=== PATIENT | male | born 1990 | race Caucasian/White ===

== ENCOUNTER → 2016-08-08 | Outpatient (CLI) | payer BC, OTHER | END | disposition home or self-care (01) | LOC: RADECHMAIN 13:29 | PROVIDERS: ATTEND Family Medicine | DX: R00.1 Bradycardia, unspecified (principal); R00.0 Tachycardia, unspecified | CPT/HCPCS: 93225; 93226 ==

== ENCOUNTER 2017-03-09 23:52 | Emergency (ER) | payer BC ==
[2017-03-10 00:02] VITALS: RESP 18
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
[2017-03-10 00:42] LABS: Basophils # (A) 0.1 k/uL (0-0.2); Basophils % (A) 2 %; CH 33.1; CHCM 36.2; Eosinophils # (A) 0.2 k/uL (0-0.7); Eosinophils % (A) 4 %; HCT 44.3 % (39.0-53.0); HDW 2.73; HGB 15.5 gm/dL (13.0-17.5); Luc # (Auto) 0.15; Luc % (Auto) 3; Lymphocytes # (A) 1.9 k/uL (1.0-4.8); Lymphocytes % (A) 37 %; MCH 32.1 pg (25.0-35.0); MCHC 34.9 g/dL (31.0-37.0); MCV 91.9 fL (80.0-100.0); Mean Platelet Volume 8.3; Monocytes # (A) 0.5 k/uL (0-1.0); Monocytes % (A) 9 %; Neutrophils # (A) 2.3 k/uL (1.3-7.7); Neutrophils % (A) 46 %; RBC 4.82 m/uL (4.30-5.90); RDW 14.8 % (11.5-15.5); WBC 5.1 k/uL (3.8-10.6); WBC (Perox) 4.89
[2017-03-10 00:54] LABS: ALT 38 U/L (21-72); AST 31 U/L (17-59); Alkaline Phosphatase 68 U/L (38-126); Amylase <30 U/L (30-110); Anion Gap 11 mmol/L; Blood Urea Nitrogen 18 mg/dL (9-20); Calcium 9.4 mg/dL (8.4-10.2); Carbon Dioxide 27 mmol/L (22-30); Chloride 101 mmol/L (98-107); Glucose 106 mg/dL (74-99); Non-African American GFR(MDRD) >60 (>60 ml/min/1.73 sqM); Potassium 3.8 mmol/L (3.5-5.1); Sodium 139 mmol/L (137-145); Total Bilirubin 0.6 mg/dL (0.2-1.3); Total Protein 6.9 g/dL (6.3-8.2)
--- NOTE | 2017-03-10 00:57 | XR ---
EXAM: XR KUB, 1 View CLINICAL HISTORY: Reason: abdominal pain TECHNIQUE: Frontal supine view of the abdomen/pelvis. COMPARISON: No relevant prior studies available. FINDINGS: Gastrointestinal tract: Unremarkable. No dilation. Bones/joints: Fixation screws noted in the left hip without evidence of fracture or loosening. IMPRESSION: No acute findings.
--- NOTE | 2017-03-10 00:58 | XR ---
EXAM: XR Chest, 1 View CLINICAL HISTORY: Reason: Pain TECHNIQUE: Frontal view of the chest. COMPARISON: 02/05/16 FINDINGS: Lungs: Unremarkable. No consolidation. Pleural space: Unremarkable. No pneumothorax. Heart: Unremarkable. No cardiomegaly. Mediastinum: Unremarkable. Bones/joints: Unremarkable. IMPRESSION: Normal chest x-ray.
[2017-03-10 01:21] LABS: Amorphous Sediment,Urine Moderate /hpf; Appearance,Urine Turbid (Clear); Bilirubin,Urine Negative (Negative); Glucose,Urine (UA) Negative (Negative); Ketones,Urine Negative (Negative); Leukocyte Esterase,Urine Trace (Negative); Nitrite,Urine Negative (Negative); PH, Urine 7.5 (5.0-8.0); Particle Count 8196; Protein,Urine Negative (Negative); Specific Gravity,Urine 1.012 (1.001-1.035); UA Billing (MACRO vs. MICRO) MICRO; Urobilinogen,Urine <2.0 mg/dL (<2.0)
[2017-03-10 02:05] VITALS: BP 121/59; PULSE 73; TEMP 97.8
== END 2017-03-10 02:06 | disposition home or self-care (01) ==
LOC: EC 23:52
DX: R11.2 Nausea with vomiting, unspecified (principal); R10.13 Epigastric pain; F17.200 Nicotine dependence, unspecified, uncomplicated; Z91.040 Latex allergy status
CPT/HCPCS: 36415; 71010; 74000; 80053; 81001; 82150; 83690; 85025; 99284

== ENCOUNTER 2017-12-04 01:38 | Emergency (ER) | payer SELFPAY ==
[2017-12-04 01:50] VITALS: RESP 18
[2017-12-04] MEDS ORDERED: LORATADINE 10 MG TAB PO STA (02:27)
[2017-12-04] MEDS ORDERED: ALBUTEROL NEBULIZED 2.5 MG/3 ML INHALATION STA (02:27)
[2017-12-04] MEDS ORDERED: BENZONATATE 100 MG CAP PO STA (02:27)
[2017-12-04] MEDS ORDERED: cefTRIAXone 250 MG VIAL IM STA (02:27)
[2017-12-04] MEDS ORDERED: AZITHROMYCIN 500 MG TAB PO STA (02:27)
[2017-12-04 02:29] LABS: Appearance,Urine Clear (Clear); Bilirubin,Urine Negative (Negative); Blood,Urine Negative (Negative); Color,Urine Yellow; Glucose,Urine (UA) Negative (Negative); Ketones,Urine Negative (Negative); Leukocyte Esterase,Urine Negative (Negative); Nitrite,Urine Negative (Negative); Protein,Urine Negative (Negative); Specific Gravity,Urine 1.021 (1.001-1.035); Urobilinogen,Urine <2.0 mg/dL (<2.0)
--- NOTE | 2017-12-04 02:41 | XR ---
EXAMINATION TYPE: XR chest 2V DATE OF EXAM: 12/04/2017 COMPARISON: 02/05/2016 HISTORY: Chest pain TECHNIQUE: Frontal and lateral views of the chest are obtained. FINDINGS: Heart and mediastinum are normal. Lungs are clear. Diaphragm is normal. Bony thorax is int act. IMPRESSION: Normal chest. No change.
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
[2017-12-04 03:47] VITALS: BP 130/74; PULSE 69; TEMP 98.3
[2017-12-05 14:03] LABS: C. trachomatis,PCR Negative (Neg,Equiv); Chlamydia trachomatis Source Urine; N. gonorrhoeae,PCR Positive (Neg,Equiv); Neisseria Source Urine
== END 2017-12-04 03:46 | disposition home or self-care (01) ==
LOC: EC 01:38
DX: J45.909 Unspecified asthma, uncomplicated (principal); A74.9 Chlamydial infection, unspecified; F17.200 Nicotine dependence, unspecified, uncomplicated; Z91.040 Latex allergy status
CPT/HCPCS: 71046; 81003; 87491; 87591; 94640; 96372; 99283

== ENCOUNTER 2018-01-15 21:12 | Emergency (ER) | payer OTHER ==
[2018-01-15 21:33] VITALS: BP 135/75; PULSE 109; RESP 18; TEMP 98.3
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
[2018-01-16 05:26] LABS: Basophils % (A) 1 %; Eosinophils # (A) 0.1 k/uL (0-0.7); Eosinophils % (A) 2 %; HCT 50.8 % (39.0-53.0); HGB 17.2 gm/dL (13.0-17.5); Lymphocytes % (A) 25 %; MCH 31.4 pg (25.0-35.0); MCHC 33.8 g/dL (31.0-37.0); Mean Platelet Volume 7.5; Monocytes # (A) 0.5 k/uL (0-1.0); Monocytes % (A) 6 %; Neutrophils # (A) 5.2 k/uL (1.3-7.7); Neutrophils % (A) 64 %; Platelet Count 274 k/uL (150-450); RBC 5.46 m/uL (4.30-5.90); RDW 14.4 % (11.5-15.5); WBC 8.1 k/uL (3.8-10.6)
[2018-01-16 05:27] LABS: Amorphous Sediment,Urine Rare /hpf; Appearance,Urine Clear (Clear); Bilirubin,Urine Negative (Negative); Blood,Urine Negative (Negative); Color,Urine Yellow; Glucose,Urine (UA) Negative (Negative); Ketones,Urine Negative (Negative); Leukocyte Esterase,Urine Negative (Negative); Mucus,Urine Rare /hpf; Nitrite,Urine Negative (Negative); PH, Urine 6.5 (5.0-8.0); Protein,Urine Negative (Negative); Specific Gravity,Urine 1.019 (1.001-1.035); Squamous Epithelial Cell,Urine <1 /hpf (0-4); WBC,Urine <1 /hpf (0-5)
[2018-01-16 06:03] LABS: ALT 35 U/L (21-72); AST 26 U/L (17-59); Albumin 4.5 g/dL (3.5-5.0); Alkaline Phosphatase 76 U/L (38-126); Anion Gap 10 mmol/L; Blood Urea Nitrogen 17 mg/dL (9-20); Carbon Dioxide 25 mmol/L (22-30); Chloride 107 mmol/L (98-107); Glucose 88 mg/dL (74-99); Magnesium 2.2 mg/dL (1.6-2.3); Potassium 4.6 mmol/L (3.5-5.1); Sodium 142 mmol/L (137-145); Total Bilirubin 0.5 mg/dL (0.2-1.3); Total Protein 7.3 g/dL (6.3-8.2)
--- NOTE | 2018-01-16 11:12 | XR ---
EXAMINATION TYPE: XR chest 2V DATE OF EXAM: 01/16/2018 COMPARISON: NONE HISTORY: Chest pain TECHNIQUE: Frontal and lateral views of the chest are obtained. FINDINGS: There is no focal air space opacity. No evidence for pneumothorax. No pleural effusion. The cardiac silhouette size is within normal limits. The osseous structures are grossly intact. IMPRESSION: 1. No acute cardiopulmonary process.
[2018-01-16 12:18] LABS: HIV AB P24 Non-Reactive (Non-Reactive); HIV P24 AG Non-Reactive (Non-Reactive)
== END 2018-01-16 01:01 | disposition home or self-care (01) ==
LOC: EC 21:12
DX: B34.9 Viral infection, unspecified (principal); F17.200 Nicotine dependence, unspecified, uncomplicated; Z91.040 Latex allergy status
CPT/HCPCS: 36415; 71046; 80053; 81003; 83735; 85025; 86308; 87390; 87491; 87591; 99285

== ENCOUNTER 2018-06-17 01:32 | Emergency (ER) | payer OTHER ==
[2018-06-17 01:40] VITALS: BP 110/73; TEMP 97.8
[2018-06-17 02:06] LABS: Appearance,Urine Clear (Clear); Bilirubin,Urine Negative (Negative); Blood,Urine Negative (Negative); Color,Urine Light Yellow; Glucose,Urine (UA) Negative (Negative); Ketones,Urine Negative (Negative); Leukocyte Esterase,Urine Negative (Negative); Nitrite,Urine Negative (Negative); Protein,Urine Negative (Negative); Specific Gravity,Urine 1.007 (1.001-1.035); Urobilinogen,Urine <2.0 mg/dL (<2.0)
[2018-06-17] MEDS ORDERED: AZITHROMYCIN 500 MG TAB PO STA (02:16)
[2018-06-17] MEDS ORDERED: cefTRIAXone 250 MG VIAL IM STA (02:16)
[2018-06-17] MEDS ORDERED: metroNIDAZOLE 500 MG TAB PO STA (02:16)
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
[2018-06-17 03:28] VITALS: PULSE 64; RESP 16
[2018-06-18 13:56] LABS: N. gonorrhoeae,PCR Negative (Neg,Equiv); Neisseria Source Urine
[2018-06-18 15:35] LABS: C. trachomatis,PCR Negative (Neg,Equiv); Chlamydia trachomatis Source Urine
== END 2018-06-17 03:26 | disposition home or self-care (01) ==
LOC: EC 01:32
DX: Z71.1 Person with feared health complaint in whom no diagnosis is made (principal); F17.200 Nicotine dependence, unspecified, uncomplicated; Z91.040 Latex allergy status
CPT/HCPCS: 81003; 87491; 87591; 99284; 96372; J0696

== ENCOUNTER 2018-06-29 00:35 | Emergency (ER) | payer OTHER ==
[2018-06-29 00:43] VITALS: BP 137/65; PULSE 101; RESP 18; TEMP 97.8
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
[2018-06-29 01:21] LABS: Basophils % (A) 0 %; Eosinophils % (A) 1 %; HCT 46.9 % (39.0-53.0); HGB 16.1 gm/dL (13.0-17.5); Lymphocytes # (A) 2.4 k/uL (1.0-4.8); Lymphocytes % (A) 36 %; MCH 31.9 pg (25.0-35.0); MCHC 34.3 g/dL (31.0-37.0); Mean Platelet Volume 7.5; Monocytes # (A) 0.3 k/uL (0-1.0); Monocytes % (A) 5 %; Neutrophils # (A) 3.8 k/uL (1.3-7.7); Neutrophils % (A) 56 %; Platelet Count 244 k/uL (150-450); RBC 5.04 m/uL (4.30-5.90); RDW 13.8 % (11.5-15.5); WBC 6.8 k/uL (3.8-10.6)
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
[2018-06-29 01:46] LABS: ALT 32 U/L (21-72); AST 36 U/L (17-59); Albumin 4.5 g/dL (3.5-5.0); Alkaline Phosphatase 56 U/L (38-126); Anion Gap 11 mmol/L; Blood Urea Nitrogen 13 mg/dL (9-20); Calcium 9.5 mg/dL (8.4-10.2); Carbon Dioxide 24 mmol/L (22-30); Chloride 108 mmol/L (98-107); Glucose 105 mg/dL (74-99); Potassium 4.2 mmol/L (3.5-5.1); Sodium 143 mmol/L (137-145); Total Bilirubin 0.5 mg/dL (0.2-1.3); Total Protein 7.3 g/dL (6.3-8.2)
--- NOTE | 2018-06-29 02:18 | XR ---
EXAMINATION TYPE: XR chest 1V portable DATE OF EXAM: 06/29/2018 COMPARISON: 01/15/2018 HISTORY: Chest pain and trauma TECHNIQUE: Single frontal view of the chest is obtained. FINDINGS: Heart and mediastinum are normal. Lungs are clear. Diaphragm is normal. There is no sign o f pleural effusion or pneumothorax. Ribs appear intact. IMPRESSION: Normal chest
--- NOTE | 2018-06-29 02:20 | XR ---
EXAMINATION TYPE: XR wrist limited LT DATE OF EXAM: 06/29/2018 COMPARISON: NONE HISTORY: Wrist pain TECHNIQUE: 4 views FINDINGS: There is a nondisplaced 5 mm chip fracture of the lateral aspect of the distal scaphoid bon e. There is no dislocation. The other carpal bones appear intact. Metacarpals are intact. IMPRESSION: Small nondisplaced chip fracture of the scaphoid bone.
--- NOTE | 2018-06-29 02:21 | XR ---
EXAMINATION TYPE: XR Hip LT and AP Pelvis DATE OF EXAM: 06/29/2018 COMPARISON: NONE HISTORY: TECHNIQUE: A single AP view of the pelvis is obtained. Two views of the left hip are obtained. FINDINGS: The pelvic ring is intact. There are 3 screws in the left femoral head and 2 screws in the intertrochanteric femur. Joint spaces are fairly normal. Sacroiliac joints are intact. I see no fract ure. IMPRESSION: No acute abnormality of the pelvis and left hip.
[2018-06-29 02:45] LABS: Alcohol 110 mg/dL
== END 2018-06-29 03:25 | disposition home or self-care (01) ==
LOC: EC 00:35
DX: S62.015A Nondisplaced fracture of distal pole of navicular [scaphoid] bone of left wrist, initial encounter for closed fracture (principal); M25.552 Pain in left hip; M54.2 Cervicalgia; F17.200 Nicotine dependence, unspecified, uncomplicated; Z91.040 Latex allergy status; Z98.890 Other specified postprocedural states; W17.89XA Other fall from one level to another, initial encounter; Y93.89 Activity, other specified
CPT/HCPCS: 29125; 36415; 70450; 71045; 72125; 73502; 80053; 80320; 85025; 93005; 99284

== ENCOUNTER 2018-07-13 14:38 | Emergency (ER) | payer OTHER ==
[2018-07-13 15:00] VITALS: RESP 18; TEMP 98.9
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
[2018-07-13 15:57] LABS: Appearance,Urine Clear (Clear); Bilirubin,Urine Negative (Negative); Blood,Urine Negative (Negative); Color,Urine Yellow; Glucose,Urine (UA) Negative (Negative); Ketones,Urine Negative (Negative); Leukocyte Esterase,Urine Negative (Negative); Nitrite,Urine Negative (Negative); PH, Urine 5.5 (5.0-8.0); Protein,Urine Negative (Negative); Specific Gravity,Urine 1.016 (1.001-1.035); Urobilinogen,Urine <2.0 mg/dL (<2.0)
--- NOTE | 2018-07-13 16:04 | US ---
EXAMINATION TYPE: US scrotum with doppler. Grayscale and color Doppler Duplex imaging performed of stephanie pablo scrotum. DATE OF EXAM: 07/13/2018 COMPARISON: NONE CLINICAL HISTORY: Pain. right testicle pain EXAM MEASUREMENTS: TESTICLES: Right Testicle: 4.6 x 2.1 x 2.9 cm Left Testicle: 4.9 x 2.0 x 2.8 cm EPIDIDYMIS HEAD: Right Epididymis: 0.7 x 0.9 cm Left Epididymis: 0.7 x 0.9 cm Doppler performed to assess for testicular vascularity; good bilateral color flow and waveforms are s een. There is no evidence of testicular torsion. Presence of hydroceles: small amount of fluid around left testicle. Presence of varicoceles: not appreciated Echogenic focus posterior to left testicle, incidentally noted scrotal serina. IMPRESSION: 1. Trace left hydrocele. 2. No sonographic evidence of intratesticular mass. No increased blood flow to the right testicle. No enlarged size or edema of the right testicle comparison to the left. No evidence of testicular torsi on on the examination.
[2018-07-13] MEDS ORDERED: metroNIDAZOLE 500 MG TAB PO STA ×2 (17:11→17:32)
[2018-07-13] MEDS ORDERED: KETOROLAC 30 MG/ML 1 ML VIAL IM STA (17:12)
[2018-07-13 17:55] VITALS: BP 127/79; PULSE 60
[2018-07-14 14:29] LABS: C. trachomatis,PCR Negative (Neg,Equiv); Chlamydia trachomatis Source Urine; N. gonorrhoeae,PCR Negative (Neg,Equiv); Neisseria Source Urine
== END 2018-07-13 17:53 | disposition home or self-care (01) ==
LOC: EC 14:38
DX: N50.811 Right testicular pain (principal); N43.3 Hydrocele, unspecified; F17.200 Nicotine dependence, unspecified, uncomplicated; Z91.040 Latex allergy status
CPT/HCPCS: 81003; 87491; 87591; 87661; 93975; 76870; 99284; 96372; J1885

== ENCOUNTER 2019-03-26 19:18 | Emergency (ER) | payer OTHER ==
[2019-03-26] MEDS ORDERED: AZITHROMYCIN 500 MG TAB PO STA (19:35)
[2019-03-26] MEDS ORDERED: cefTRIAXone 250 MG VIAL IM STA (19:35)
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
[2019-03-26 20:01] LABS: Appearance,Urine Clear (Clear); Bacteria,Urine Rare /hpf; Bilirubin,Urine Negative (Negative); Blood,Urine Negative (Negative); Color,Urine Yellow; Glucose,Urine (UA) Negative (Negative); Ketones,Urine Trace (Negative); Leukocyte Esterase,Urine Moderate (Negative); Mucus,Urine Few /hpf; Nitrite,Urine Negative (Negative); Protein,Urine Trace (Negative); RBC,Urine 1 /hpf (0-5); Specific Gravity,Urine 1.029 (1.001-1.035); WBC,Urine 49 /hpf (0-5)
--- NOTE | 2019-03-26 20:17 | XR ---
EXAMINATION TYPE: XR chest 2V DATE OF EXAM: 03/26/2019 COMPARISON: 06/29/2018 HISTORY: Cough TECHNIQUE: Frontal and lateral views of the chest are obtained. FINDINGS: Heart and mediastinum are normal. Lungs are clear. Diaphragm is normal. Bony thorax appear s normal. IMPRESSION: Normal chest. No change.
[2019-03-26] MEDS ORDERED: CEPHALEXIN 500MG STARTER PACK 4 CAP BTL PO STA (21:08)
[2019-03-26] MEDS ORDERED: ACETAMINOPHEN TAB 325 MG TAB PO STA (21:08)
[2019-03-26 21:19] VITALS: BP 128/83; PULSE 95; RESP 16; TEMP 98.4
[2019-03-27 16:24] LABS: C. trachomatis,PCR Negative (Neg,Equiv); Chlamydia trachomatis Source Urine
[2019-03-27 16:25] LABS: N. gonorrhoeae,PCR Positive (Neg,Equiv); Neisseria Source Urine
== END 2019-03-26 21:18 | disposition home or self-care (01) ==
LOC: EC 19:18
DX: J06.9 Acute upper respiratory infection, unspecified (principal); F17.200 Nicotine dependence, unspecified, uncomplicated; Z91.040 Latex allergy status; Z91.048 Other nonmedicinal substance allergy status
CPT/HCPCS: 81001; 87491; 87591; 87502; 71046; 99284; 96372; J0696

== ENCOUNTER → 2019-10-11 | Outpatient (CLI) | payer OTHER ==
--- NOTE | 2019-10-11 12:05 | XR ---
EXAMINATION TYPE: XR chest 2V DATE OF EXAM: 10/11/2019 COMPARISON: 03/26/2019 HISTORY: Chest pain TECHNIQUE: Frontal and lateral views of the chest are obtained. FINDINGS: There is no focal air space opacity. No evidence for pneumothorax. No pleural effusion. The cardiac silhouette size is within normal limits. The osseous structures are grossly intact. IMPRESSION: 1. No acute cardiopulmonary process.
[2019-10-11 12:30] LABS: Appearance,Urine Clear (Clear); Bilirubin,Urine Negative (Negative); Blood,Urine Negative (Negative); Color,Urine Light Yellow; Glucose,Urine (UA) Negative (Negative); Ketones,Urine Negative (Negative); Leukocyte Esterase,Urine Negative (Negative); Nitrite,Urine Negative (Negative); Protein,Urine Negative (Negative); Specific Gravity,Urine 1.013 (1.001-1.035); Urobilinogen,Urine <2.0 mg/dL (<2.0)
[2019-10-11 12:31] LABS: Basophils % (A) 0 %; Eosinophils # (A) 0.2 k/uL (0-0.7); Eosinophils % (A) 3 %; HCT 48.3 % (39.0-53.0); Lymphocytes # (A) 2.1 k/uL (1.0-4.8); Lymphocytes % (A) 37 %; MCH 31.1 pg (25.0-35.0); MCHC 33.2 g/dL (31.0-37.0); MCV 93.6 fL (80.0-100.0); Mean Platelet Volume 8.2; Monocytes # (A) 0.4 k/uL (0-1.0); Monocytes % (A) 7 %; Neutrophils # (A) 2.8 k/uL (1.3-7.7); Neutrophils % (A) 49 %; Platelet Count 284 k/uL (150-450); RBC 5.16 m/uL (4.30-5.90); RDW 13.9 % (11.5-15.5); WBC 5.8 k/uL (3.8-10.6)
[2019-10-11 13:22] LABS: Erythrocyte Sedimentation Rate 2 mm/hr (0-15)
[2019-10-11 18:56] LABS: African American GFR (CKD) 134.2 (60.0-200.0); Albumin 4.7 g/dL (3.80-4.90); Albumin/Globulin Ratio 1.88 (1.60-3.17); Anion Gap 9.4 mmol/L (4.00-12.00); BUN/Creat Ratio 14.44 Ratio (12.00-20.00); Calcium 9.9 mg/dL (8.7-10.3); Carbon Dioxide 26.6 mmol/L (21.6-31.8); Chol/HDL Ratio 3.74; Globulin 2.5 g/dL (1.6-3.3); LDL Cholesterol,Calculated 120.6 mg/dL (0.0-131.0); Non-African American GFR(CKD) 115.8 (60.0-200.0); Potassium 5.1 mmol/L (3.5-5.5); Total Bilirubin 0.6 mg/dL (0.2-1.2); Total Protein 7.2 g/dL (6.2-8.2); VLDL Calculation 27.4 mg/dL (5.00-40.00)
== END | disposition home or self-care (01) ==
LOC: LABWHC1 11:30
PROVIDERS: ATTEND Internal Medicine
DX: R05 Cough (principal); Z13.9 Encounter for screening, unspecified; R07.89 Other chest pain; E55.9 Vitamin D deficiency, unspecified
CPT/HCPCS: 36415; 71046; 80053; 80061; 81003; 82306; 85025; 85652; 87086

== ENCOUNTER 2019-11-29 08:03 | Emergency (ER) | payer OTHER ==
[2019-11-29] MEDS ORDERED: DIPH,PERTUS(ACELL)TETVAC-LF 0.5 ML VIAL IM ONE (08:17)
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
[2019-11-29 11:36] VITALS: BP 119/78; PULSE 86; RESP 16; TEMP 98
== END 2019-11-29 13:38 | disposition home or self-care (01) ==
LOC: EC 08:03
DX: R45.851 Suicidal ideations (principal); S01.81XA Laceration without foreign body of other part of head, initial encounter; F17.200 Nicotine dependence, unspecified, uncomplicated; Z23 Encounter for immunization; Z53.29 Procedure and treatment not carried out because of patient's decision for other reasons; Z91.040 Latex allergy status; Z91.048 Other nonmedicinal substance allergy status; W22.8XXA Striking against or struck by other objects, initial encounter
CPT/HCPCS: 82075; 90471; 90715; 99284

== ENCOUNTER 2021-05-22 23:53 | Emergency (ER) | payer OTHER ==
[2021-05-23 00:15] VITALS: TEMP 97.7
[2021-05-23] MEDS ORDERED: diphenhydrAMINE 50 MG/ML 1 ML VIAL IVP STA (00:31)
[2021-05-23] MEDS ORDERED: HALOPERIDOL LACTATE 5 MG/ML 1 ML VIAL IVP PRN (00:32)
[2021-05-23] MEDS ORDERED: LORazepam 2 MG/ML INJ IM STA (00:33)
[2021-05-23 00:59] LABS: Basophils # (A) 0.1 k/uL (0-0.2); Basophils % (A) 1 %; Eosinophils % (A) 0 %; Lymphocytes # (A) 3.7 k/uL (1.0-4.8); Lymphocytes % (A) 37 %; MCH 32.4 pg (25.0-35.0); MCHC 33.2 g/dL (31.0-37.0); MCV 97.5 fL (80.0-100.0); Mean Platelet Volume 7.9; Monocytes # (A) 0.5 k/uL (0-1.0); Monocytes % (A) 5 %; Neutrophils # (A) 5.3 k/uL (1.3-7.7); Neutrophils % (A) 54 %; Platelet Count 342 k/uL (150-450); RBC 5.24 m/uL (4.30-5.90); RDW 12.9 % (11.5-15.5); WBC 9.8 k/uL (3.8-10.6)
[2021-05-23 01:25] LABS: ALT 18 U/L (4-49); AST 23 U/L (17-59); African American GFR (CKD) >90 (>60 ml/min/1.73 sqM); Albumin 5.1 g/dL (3.5-5.0); Alkaline Phosphatase 85 U/L (38-126); Anion Gap 26 mmol/L; Blood Urea Nitrogen 8 mg/dL (9-20); Calcium 9.6 mg/dL (8.4-10.2); Carbon Dioxide 11 mmol/L (22-30); Chloride 108 mmol/L (98-107); Glucose 107 mg/dL (74-99); Non-African American GFR(CKD) >90 (>60 ml/min/1.73 sqM); Potassium 4.2 mmol/L (3.5-5.1); Sodium 145 mmol/L (137-145); Total Bilirubin 0.4 mg/dL (0.2-1.3); Total Protein 8.8 g/dL (6.3-8.2)
[2021-05-23 01:31] LABS: Alcohol 148 mg/dL
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
[2021-05-23 04:10] VITALS: BP 106/65; PULSE 93; RESP 17
== END 2021-05-23 06:13 | disposition home or self-care (01) ==
LOC: EC 23:53
DX: F10.129 Alcohol abuse with intoxication, unspecified (principal); Y90.6 Blood alcohol level of 120-199 mg/100 ml; J45.909 Unspecified asthma, uncomplicated; Z79.51 Long term (current) use of inhaled steroids; Z79.899 Other long term (current) drug therapy
CPT/HCPCS: 82075; 36415; 80053; 85025; 99284; 96374; 96375; 96372; G0480; J2060; J1200; J1630; 80320

== ENCOUNTER 2021-07-05 06:05 | Emergency (ER) | payer OTHER ==
[2021-07-05 06:10] VITALS: BP 141/87; PULSE 118; RESP 18; TEMP 99.9
[2021-07-05 06:33] LABS: Appearance,Urine Clear (Clear); Bilirubin,Urine Negative (Negative); Blood,Urine Negative (Negative); Color,Urine Yellow; Glucose,Urine (UA) Negative (Negative); Ketones,Urine Trace (Negative); Leukocyte Esterase,Urine Negative (Negative); Nitrite,Urine Negative (Negative); Protein,Urine Negative (Negative); Urobilinogen,Urine <2.0 mg/dL (<2.0)
[2021-07-05] MEDS ORDERED: cefTRIAXone 1,000 MG VIAL (IM USE) IM STA (06:40)
[2021-07-05] MEDS ORDERED: LIDOCAINE 1% INJ 10MG/ML (20 ML MDV) SQ ONE (06:49)
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
[2021-07-06 15:11] LABS: C. trachomatis,PCR Negative (Neg,Equiv); Chlamydia trachomatis Source Urine; N. gonorrhoeae,PCR Negative (Neg,Equiv); Neisseria Source Urine
== END 2021-07-05 07:00 | disposition home or self-care (01) ==
LOC: EC 06:05
DX: R30.0 Dysuria (principal); J45.909 Unspecified asthma, uncomplicated; F31.9 Bipolar disorder, unspecified; F41.9 Anxiety disorder, unspecified; F17.200 Nicotine dependence, unspecified, uncomplicated; Z79.51 Long term (current) use of inhaled steroids; Z79.899 Other long term (current) drug therapy
CPT/HCPCS: 81003; 87491; 87591; 99283; 96372; J2001; J0696

== ENCOUNTER 2021-07-20 00:50 | Emergency (ER) | payer OTHER ==
[2021-07-20 00:56] VITALS: BP 136/83; PULSE 77; RESP 16; TEMP 98.1
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
[2021-07-20] MEDS ORDERED: ACETAMINOPHEN TAB 500 MG TAB PO STA (02:36)
[2021-07-20] MEDS ORDERED: DIPH,PERTUS(ACELL)TETVAC-LF 0.5 ML VIAL IM ONE (02:36)
[2021-07-20] MEDS ORDERED: AMOXICILLIN 500 MG CAP PO STA (02:36)
[2021-07-20] MEDS ORDERED: TOPICAL SKIN ADHESIVE 1 EACH AMP TOPICAL ONE (02:36)
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
== END 2021-07-20 03:00 | disposition home or self-care (01) ==
LOC: EC 00:50
DX: S02.2XXA Fracture of nasal bones, initial encounter for closed fracture (principal); S01.111A Laceration without foreign body of right eyelid and periocular area, initial encounter; F17.200 Nicotine dependence, unspecified, uncomplicated; Y04.8XXA Assault by other bodily force, initial encounter
CPT/HCPCS: 12011; 70450; 70486; 99284

== ENCOUNTER 2021-07-21 02:49 | Emergency (ER) | payer OTHER ==
[2021-07-21] MEDS ORDERED: SODIUM CHLORIDE 0.9% 1,000 ML IV STA (02:54)
[2021-07-21] MEDS ORDERED: ONDANSETRON 4 MG/2 ML VIAL IVP STA (02:54)
[2021-07-21] MEDS ORDERED: HYDROmorphone 0.5 MG/0.5 ML SYRINGE IVP STA (02:54)
[2021-07-21 02:58] LABS: Glucose,Whole Blood 105 mg/dL (75-99)
[2021-07-21] MEDS ORDERED: HYDROmorphone 1 MG/ML 1 ML SYRINGE IVP STA (02:59)
[2021-07-21] MEDS ORDERED: LORazepam 2 MG/ML INJ IV STA (02:59)
[2021-07-21] MEDS ORDERED: RX INFO: IV CONTRAST WAS GIVEN 1 EACH MISC MISCELLANE PRN (03:04)
[2021-07-21 03:15] LABS: Basophils % (A) 1 %; Eosinophils % (A) 1 %; HCT 47.8 % (39.0-53.0); HGB 16.6 gm/dL (13.0-17.5); Lymphocytes # (A) 3.3 k/uL (1.0-4.8); Lymphocytes % (A) 47 %; MCH 33.4 pg (25.0-35.0); MCHC 34.7 g/dL (31.0-37.0); MCV 96.1 fL (80.0-100.0); Mean Platelet Volume 8.1; Monocytes # (A) 0.5 k/uL (0-1.0); Monocytes % (A) 7 %; Neutrophils # (A) 2.9 k/uL (1.3-7.7); Neutrophils % (A) 41 %; Platelet Count 299 k/uL (150-450); RBC 4.98 m/uL (4.30-5.90); RDW 13.3 % (11.5-15.5); WBC 7.1 k/uL (3.8-10.6)
[2021-07-21] MEDS ORDERED: NALOXONE 0.4 MG/ML 1 ML VIAL IVP STA (03:16)
[2021-07-21 03:18] VITALS: RESP 10
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
[2021-07-21 03:34] VITALS: BP 119/76; PULSE 89; TEMP 98
[2021-07-21] MEDS ORDERED: diphenhydrAMINE 50 MG/ML 1 ML VIAL IVP STA (03:47)
[2021-07-21] MEDS ORDERED: methylPREDNISolone SOD SUCCI 125 MG/2 ML VIAL IM ONE (03:48)
[2021-07-21] MEDS ORDERED: FAMOTIDINE 20 MG/2 ML VIAL IV STA (03:49)
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
[2021-07-21 03:59] LABS: Partial Thromboplastin Time 22.1 sec (22.0-30.0)
[2021-07-21 04:17] LABS: ALT 74 U/L (4-49); AST 93 U/L (17-59); African American GFR (CKD) >90 (>60 ml/min/1.73 sqM); Albumin 4.4 g/dL (3.5-5.0); Alkaline Phosphatase 63 U/L (38-126); Anion Gap 13 mmol/L; Blood Urea Nitrogen 13 mg/dL (9-20); Calcium 9.3 mg/dL (8.4-10.2); Carbon Dioxide 22 mmol/L (22-30); Chloride 104 mmol/L (98-107); Glucose 108 mg/dL (74-99); Non-African American GFR(CKD) >90 (>60 ml/min/1.73 sqM); Sodium 139 mmol/L (137-145); Total Bilirubin 0.7 mg/dL (0.2-1.3); Total Protein 7.2 g/dL (6.3-8.2)
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
[2021-07-21 04:32] LABS: Appearance,Urine Clear (Clear); Bilirubin,Urine Negative (Negative); Blood,Urine Moderate (Negative); Color,Urine Light Yellow; Glucose,Urine (UA) Negative (Negative); Ketones,Urine Negative (Negative); Leukocyte Esterase,Urine Negative (Negative); Mucus,Urine Rare /hpf; Nitrite,Urine Negative (Negative); PH, Urine 5.5 (5.0-8.0); Protein,Urine Trace (Negative); RBC,Urine <1 /hpf (0-5); Specific Gravity,Urine 1.006 (1.001-1.035); Squamous Epithelial Cell,Urine <1 /hpf (0-4); Urobilinogen,Urine <2.0 mg/dL (<2.0); WBC,Urine 1 /hpf (0-5)
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
[2021-07-21 05:02] LABS: Amphetamine Screen,Urine Detected (NotDetected); Cocaine Screen,Urine Detected (NotDetected); Opiate Screen,Urine Detected (NotDetected); Phencyclidine Screen,Urine Not Detected (NotDetected)
[2021-07-21 05:03] LABS: Barbiturate Screen,Urine Not Detected (NotDetected); Benzodiazepines Screen,Urine Not Detected (NotDetected); Methadone Screen, Urine Not Detected (NotDetected); Oxycodone Screen, Urine Detected (NotDetected); Tricyclic Antidepressant,Urine Not Detected (NotDetected); Urn Cannabinoid Scrn Not Detected (NotDetected)
== END 2021-07-21 05:45 | disposition other institution (70) ==
LOC: EC 02:49
DX: S72.91XA Unspecified fracture of right femur, initial encounter for closed fracture (principal); S93.104A Unspecified dislocation of right toe(s), initial encounter; S61.411A Laceration without foreign body of right hand, initial encounter; F19.129 Other psychoactive substance abuse with intoxication, unspecified; S00.91XA Abrasion of unspecified part of head, initial encounter; F17.200 Nicotine dependence, unspecified, uncomplicated; V89.2XXA Person injured in unspecified motor-vehicle accident, traffic, initial encounter; Y92.410 Unspecified street and highway as the place of occurrence of the external cause
CPT/HCPCS: 28630; 99291; 96374; 96375 ×4; 96372; 36415; 93005; 86900; 86901; 80053; 84484; 85025; 85610; 85730; 86850; 81001; 80306; 80320; 72170; 71045; 72125; 70450; 71260; 74177; 73701; J2060; J1200; J2310; J2930; J1170 ×2; Q9967

== ENCOUNTER 2021-10-01 20:30 | Emergency (ER) | payer OTHER ==
--- NOTE | 2021-10-01 21:19 | XR ---
EXAMINATION TYPE: XR chest 2V DATE OF EXAM: 10/01/2021 8:43 PM COMPARISON:Chest radiographs from - TECHNIQUE: XR chest 2V Frontal and lateral views of the chest. CLINICAL INDICATION:Male, 31 years old with history of cough; FINDINGS: Lungs/Pleura: There is no evidence of pleural effusion, focal consolidation, or pneumothorax. Pulmonary vascularity: Unremarkable. Heart/mediastinum: Cardiomediastinal silhouette is unremarkable. Musculoskeletal: No acute osseous pathology. IMPRESSION: No acute cardiopulmonary disease/process.
[2021-10-01] MEDS ORDERED: ALBUTEROL NEBULIZED 2.5 MG/3 ML INHALATION STA (22:49)
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
[2021-10-02] MEDS ORDERED: ALBUTEROL NEBULIZED 2.5 MG/3 ML INHALATION STA (00:14)
[2021-10-02] MEDS ORDERED: OSELTAMIVIR 75 MG CAP PO STA (00:49)
[2021-10-02 01:19] VITALS: BP 145/79; PULSE 105; RESP 20; TEMP 98.9
== END 2021-10-02 01:25 | disposition home or self-care (01) ==
LOC: EC 20:30
DX: J10.1 Influenza due to other identified influenza virus with other respiratory manifestations (principal); Z20.822 Contact with and (suspected) exposure to COVID-19; J45.909 Unspecified asthma, uncomplicated; F17.200 Nicotine dependence, unspecified, uncomplicated
CPT/HCPCS: 71046; 87636; 94640; 99285

== ENCOUNTER 2021-12-17 07:54 | Emergency (ER) | payer OTHER ==
[2021-12-17 08:08] VITALS: RESP 18
[2021-12-17] MEDS ORDERED: ONDANSETRON 4 MG/2 ML VIAL IVP STA (08:43)
[2021-12-17] MEDS ORDERED: SODIUM CHLORIDE 0.9% 1,000 ML IV ONE (08:43)
[2021-12-17 09:16] LABS: Basophils % (A) 1 %; Eosinophils # (A) 0.1 k/uL (0-0.7); Eosinophils % (A) 2 %; HCT 45.7 % (39.0-53.0); Lymphocytes # (A) 1.7 k/uL (1.0-4.8); Lymphocytes % (A) 38 %; MCH 32.4 pg (25.0-35.0); MCV 92.7 fL (80.0-100.0); Mean Platelet Volume 7.7; Monocytes # (A) 0.3 k/uL (0-1.0); Monocytes % (A) 6 %; Neutrophils # (A) 2.2 k/uL (1.3-7.7); Neutrophils % (A) 51 %; Platelet Count 270 k/uL (150-450); RBC 4.93 m/uL (4.30-5.90); RDW 13.5 % (11.5-15.5); WBC 4.4 k/uL (3.8-10.6)
[2021-12-17 09:34] LABS: ALT 20 U/L (4-49); AST 25 U/L (17-59); African American GFR (CKD) >90 (>60 ml/min/1.73 sqM); Albumin 4.5 g/dL (3.5-5.0); Alkaline Phosphatase 101 U/L (38-126); Anion Gap 10 mmol/L; Blood Urea Nitrogen 16 mg/dL (9-20); Calcium 9.6 mg/dL (8.4-10.2); Carbon Dioxide 23 mmol/L (22-30); Chloride 104 mmol/L (98-107); Glucose 93 mg/dL (74-99); Non-African American GFR(CKD) >90 (>60 ml/min/1.73 sqM); Potassium 4.2 mmol/L (3.5-5.1); Sodium 137 mmol/L (137-145); Total Bilirubin 0.6 mg/dL (0.2-1.3); Total Protein 7.6 g/dL (6.3-8.2)
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
[2021-12-17 10:46] VITALS: BP 117/87; PULSE 62; TEMP 97.6
== END 2021-12-17 10:46 | disposition home or self-care (01) ==
LOC: EC 07:54
DX: R51.9 Headache, unspecified (principal); R42 Dizziness and giddiness; J45.909 Unspecified asthma, uncomplicated; F17.200 Nicotine dependence, unspecified, uncomplicated; Z91.040 Latex allergy status
CPT/HCPCS: 36415; 80053; 85025; 86308; 70450; 99284; 96374; 96361; J2405

== ENCOUNTER 2022-04-22 09:09 | Emergency (ER) | payer OTHER ==
[2022-04-22] MEDS ORDERED: HYDROmorphone 0.5 MG/0.5 ML SYRINGE IM STA (09:33)
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
[2022-04-22] MEDS: LIDOCAINE 1% PF 10 MG/ML (5 ML AMP) SQ ONE ×2 (09:42→10:05)
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
[2022-04-22 11:07] VITALS: BP 128/78; PULSE 78; RESP 16; TEMP 98
== END 2022-04-22 11:06 | disposition home or self-care (01) ==
LOC: EC 09:09
DX: S01.511A Laceration without foreign body of lip, initial encounter (principal); J45.909 Unspecified asthma, uncomplicated; F90.9 Attention-deficit hyperactivity disorder, unspecified type; F41.9 Anxiety disorder, unspecified; F31.9 Bipolar disorder, unspecified; F17.200 Nicotine dependence, unspecified, uncomplicated; Z79.899 Other long term (current) drug therapy; Z91.040 Latex allergy status; Z91.041 Radiographic dye allergy status; W22.8XXA Striking against or struck by other objects, initial encounter
CPT/HCPCS: 99283; 12001; 96372; 70486; J2001; J1170

== ENCOUNTER 2022-05-27 10:09 | Emergency (ER) | payer OTHER ==
[2022-05-27 10:17] VITALS: BP 150/78; PULSE 78; RESP 18; TEMP 98
[2022-05-27] MEDS ORDERED: ACET/COD 300 MG/30 MG STARTER PACK 6 TAB BTL PO STA (10:34)
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
== END 2022-05-27 10:48 | disposition home or self-care (01) ==
LOC: EC 10:09
DX: S90.822A Blister (nonthermal), left foot, initial encounter (principal); L03.116 Cellulitis of left lower limb; F17.200 Nicotine dependence, unspecified, uncomplicated; J45.909 Unspecified asthma, uncomplicated; Z91.040 Latex allergy status; Z91.041 Radiographic dye allergy status; Y29.XXXA Contact with blunt object, undetermined intent, initial encounter; Y92.89 Other specified places as the place of occurrence of the external cause
CPT/HCPCS: 99283

== ENCOUNTER 2022-06-03 15:08 | Emergency (ER) | payer OTHER ==
[2022-06-03 15:39] VITALS: BP 133/69; PULSE 88; RESP 16; TEMP 98.7
[2022-06-03] MEDS ORDERED: KETOROLAC 15 MG/ML 1 ML VIAL IVP STA (19:17)
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
[2022-06-03 19:57] LABS: Basophils % (A) 1 %; Eosinophils # (A) 0.2 k/uL (0-0.7); Eosinophils % (A) 5 %; HCT 45.2 % (39.0-53.0); HGB 15.9 gm/dL (13.0-17.5); Lymphocytes # (A) 1.1 k/uL (1.0-4.8); Lymphocytes % (A) 23 %; MCHC 35.2 g/dL (31.0-37.0); MCV 93.8 fL (80.0-100.0); Mean Platelet Volume 8.1; Monocytes # (A) 0.4 k/uL (0-1.0); Monocytes % (A) 9 %; Neutrophils # (A) 2.8 k/uL (1.3-7.7); Neutrophils % (A) 59 %; Platelet Count 279 k/uL (150-450); RBC 4.82 m/uL (4.30-5.90); WBC 4.7 k/uL (3.8-10.6)
--- NOTE | 2022-06-03 19:58 | XR ---
EXAMINATION TYPE: XR foot complete LT DATE OF EXAM: 06/03/2022 COMPARISON: NONE HISTORY: Pain TECHNIQUE: 3 views FINDINGS: The metatarsals are intact. I see no fracture nor dislocation. Joint spaces are normal. The re are no erosions. IMPRESSION: Negative left foot exam. No fracture.
[2022-06-03 20:12] LABS: ALT 72 U/L (4-49); AST 37 U/L (17-59); African American GFR (CKD) >90 (>60 ml/min/1.73 sqM); Albumin 4.5 g/dL (3.5-5.0); Alkaline Phosphatase 89 U/L (38-126); Anion Gap 10 mmol/L; Blood Urea Nitrogen 14 mg/dL (9-20); Calcium 9.3 mg/dL (8.4-10.2); Carbon Dioxide 25 mmol/L (22-30); Chloride 105 mmol/L (98-107); Glucose 86 mg/dL (74-99); Non-African American GFR(CKD) >90 (>60 ml/min/1.73 sqM); Potassium 4.7 mmol/L (3.5-5.1); Sodium 140 mmol/L (137-145); Total Bilirubin 0.5 mg/dL (0.2-1.3); Total Protein 7.4 g/dL (6.3-8.2)
[2022-06-03] MEDS ORDERED: CLINDAMYCIN 150 MG CAP PO STA (21:13)
== END 2022-06-03 21:42 | disposition home or self-care (01) ==
LOC: EC 15:08
DX: L03.90 Cellulitis, unspecified (principal); J45.909 Unspecified asthma, uncomplicated; F90.9 Attention-deficit hyperactivity disorder, unspecified type; F41.9 Anxiety disorder, unspecified; F31.9 Bipolar disorder, unspecified; F17.200 Nicotine dependence, unspecified, uncomplicated; Z91.040 Latex allergy status; Z91.041 Radiographic dye allergy status
CPT/HCPCS: 36415; 80053; 83605; 85025; 73630; 99284; 96374; J1885

== ENCOUNTER 2022-10-05 14:23 | Emergency (ER) | payer OTHER ==
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
[2022-10-05] MEDS ORDERED: BENZONATATE 100 MG CAP PO STA (14:57)
--- NOTE | 2022-10-05 15:10 | XR ---
EXAMINATION TYPE: XR chest 2V DATE OF EXAM: 10/05/2022 COMPARISON: 10/01/21 HISTORY: Chest pain TECHNIQUE: Frontal and lateral views of the chest are obtained. FINDINGS: There is no focal air space opacity. No evidence for pneumothorax. No pleural effusion. The cardiac silhouette size is within normal limits. The osseous structures are grossly intact. IMPRESSION: 1. No acute cardiopulmonary process.
[2022-10-05 15:55] VITALS: BP 132/76; PULSE 89; RESP 18; TEMP 98.1
== END 2022-10-05 15:54 | disposition home or self-care (01) ==
LOC: EC 14:23
DX: J45.909 Unspecified asthma, uncomplicated (principal); F31.9 Bipolar disorder, unspecified; F41.9 Anxiety disorder, unspecified; F17.200 Nicotine dependence, unspecified, uncomplicated; Z91.040 Latex allergy status; Z88.8 Allergy status to other drugs, medicaments and biological substances; Z20.822 Contact with and (suspected) exposure to COVID-19
CPT/HCPCS: 71046; 87636; 99283

== ENCOUNTER 2023-10-17 10:39 | Emergency (ER) | payer OTHER ==
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
[2023-10-17 11:28] VITALS: BP 152/82; PULSE 70; RESP 18; TEMP 97.7
--- NOTE | 2023-10-17 11:33 | XR ---
EXAMINATION TYPE: XR soft tissue neck DATE OF EXAM: 10/17/2023 COMPARISON: 05/10/2015 cervical spine HISTORY: Swelling TECHNIQUE: 2 view soft tissue neck FINDINGS: Epiglottis appears unremarkable. Prevertebral space is normal. There is some kyphosis throu gh the cervical spine. Posterior spinal lamellar line is intact. Subglottic airway is unremarkable. IMPRESSION: 1. No suspicious abnormality soft tissue neck
[2023-10-17] MEDS: LIDOCAINE VISCOUS 2% 15 ML CUP PO ONE (13:15)
[2023-10-17] MEDS: KETOROLAC 15 MG/ML 1 ML VIAL IM STA (13:15)
[2023-10-17] MEDS: BENZOCAINE SPRAY 1 CAN MUCOUS MEM STA (13:16)
== END 2023-10-17 13:50 | disposition home or self-care (01) ==
LOC: EC 10:39
DX: J02.9 Acute pharyngitis, unspecified (principal); F17.200 Nicotine dependence, unspecified, uncomplicated; Z91.040 Latex allergy status; Z91.041 Radiographic dye allergy status
CPT/HCPCS: 70360; 99283; 96372; 99406; J1885

== ENCOUNTER 2024-05-23 01:58 | Emergency (ER) | payer OTHER ==
[2024-05-23 02:06] VITALS: TEMP 98.9
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
[2024-05-23 02:34] LABS: Basophils % (A) 1 %; Eosinophils % (A) 0 %; HCT 46.2 % (39.0-53.0); HGB 15.6 gm/dL (13.0-17.5); Lymphocytes # (A) 2.4 k/uL (1.0-4.8); Lymphocytes % (A) 36 %; MCH 31.6 pg (25.0-35.0); MCHC 33.8 g/dL (31.0-37.0); MCV 93.7 fL (80.0-100.0); Mean Platelet Volume 7.8; Monocytes # (A) 0.7 k/uL (0-1.0); Monocytes % (A) 10 %; Neutrophils # (A) 3.2 k/uL (1.3-7.7); Neutrophils % (A) 48 %; Platelet Count 335 k/uL (150-450); RBC 4.93 m/uL (4.30-5.90); RDW 12.9 % (11.5-15.5); WBC 6.5 k/uL (3.8-10.6)
[2024-05-23 02:40] LABS: ALT 39 U/L (4-49); AST 39 U/L (17-59); African American GFR (CKD) >90 (>60 ml/min/1.73 sqM); Albumin 5.2 g/dL (3.5-5.0); Alkaline Phosphatase 76 U/L (38-126); Amylase 49 U/L (30-110); Anion Gap 12 mmol/L; Blood Urea Nitrogen 18 mg/dL (9-20); Calcium 10.2 mg/dL (8.4-10.2); Carbon Dioxide 27 mmol/L (22-30); Chloride 102 mmol/L (98-107); Glucose 109 mg/dL (74-99); Lipase 106 U/L (23-300); Non-African American GFR(CKD) >90 (>60 ml/min/1.73 sqM); Potassium 3.9 mmol/L (3.5-5.1); Sodium 141 mmol/L (137-145); Total Protein 8.4 g/dL (6.3-8.2)
[2024-05-23] MEDS: SODIUM CHLORIDE 0.9% 1,000 ML IV STA (02:46)
[2024-05-23] MEDS: KETOROLAC 15 MG/ML 1 ML VIAL IVP STA (02:49)
[2024-05-23] MEDS: ONDANSETRON 4 MG/2 ML VIAL IVP STA (02:54)
[2024-05-23] MEDS: PANTOPRAZOLE 40 MG/10 ML VIAL IVP STA (02:54)
[2024-05-23] MEDS: diphenhydrAMINE 50 MG/ML 1 ML VIAL IVP STA (02:57)
[2024-05-23] MEDS: FAMOTIDINE 20 MG/2 ML VIAL IV STA (03:00)
[2024-05-23] MEDS: methylPREDNISolone SOD SUCCI 125 MG/2 ML VIAL IV STA (03:02)
--- NOTE | 2024-05-23 03:44 | CT ---
EXAMINATION TYPE: CT abdomen pelvis w con DATE OF EXAM: 05/23/2024 COMPARISON: Prior whole body CT July 21, 2021 HISTORY: Pt presents with right upper abdominal pain that started 2 hours prior to arrival. Pt ws at the [facility] having a burger and a drink when the pain came on and pt did vomit. CT DLP: 557.9 mGycm, Automated Exposure Control for Dose Reduction was Utilized. CONTRAST: CT scan of the abdomen and pelvis is performed with oral and with IV Contrast, patient injected with 100 mL of Isovue 300. FINDINGS: LUNG BASES: No significant abnormality is appreciated. LIVER/GB: No new biliary dilatation.. Gallbladder redemonstrates distended margins without surround ing ill-defined fluid or fat stranding PANCREAS: No significant abnormality is seen. SPLEEN: No significant abnormality is seen. ADRENALS: No significant abnormality is seen. 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 BOWEL: Suboptimal evaluation without enteric contrast and patient having little internal fat. No abno rmal small or large bowel dilatation. PROSTATE/SEMINAL VESICLES: No gross abnormality seen. LYMPH NODES: No greater than 1cm abdominal or pelvic lymph nodes are appreciated. OSSEOUS STRUCTURES: Surgical change to the bilateral femurs is now present. OTHER: No significant additional abnormality is seen. IMPRESSION: No bowel obstruction. No significant new or acute finding is seen to account for patient 's clinical symptoms. [facility], , 05/23/2024 3:41 AM
[2024-05-23 04:04] VITALS: BP 103/65; PULSE 90; RESP 17
== END 2024-05-23 04:04 | disposition home or self-care (01) ==
LOC: EC 01:58
DX: R10.11 Right upper quadrant pain (principal); F17.200 Nicotine dependence, unspecified, uncomplicated; Z91.040 Latex allergy status; Z91.041 Radiographic dye allergy status
CPT/HCPCS: 36415; 80053; 82150; 83605; 83690; 85025; 74177; 99284; 96374; 96375; 96361; J1200; J2405; J3490; J1885; J2919

== ENCOUNTER 2024-09-05 19:07 | Emergency (ER) | payer OTHER ==
[2024-09-05 19:12] VITALS: BP 159/75; PULSE 102; RESP 18; TEMP 98.4
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
--- NOTE | 2024-09-05 20:51 | XR ---
EXAMINATION TYPE: XR hand complete RT DATE OF EXAM: 09/05/2024 8:46 PM COMPARISON: None. CLINICAL INDICATION: Male, 34 years old with history of swelling of right hand; PHH, pain TECHNIQUE: XR hand complete RT Frontal, lateral and oblique views were obtained. FINDINGS: Normal alignment of the visualized joints. No acute osseous pathology is identified. Mild diffuse soft tissue edema. Carpal alignment appears maintained. No significant degeneration IMPRESSION: No acute osseous pathology. [facility], , 09/05/2024 8:49 PM
== END 2024-09-05 21:44 | disposition home or self-care (01) ==
LOC: EC 19:07
DX: S66.911A Strain of unspecified muscle, fascia and tendon at wrist and hand level, right hand, initial encounter (principal); F17.200 Nicotine dependence, unspecified, uncomplicated; X50.1XXA Overexertion from prolonged static or awkward postures, initial encounter
CPT/HCPCS: 99283

== ENCOUNTER 2024-11-12 21:29 | Observation (INO) | payer OTHER ==
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
[2024-11-12] MEDS: KETOROLAC 15 MG/ML 1 ML VIAL IM STA (22:20)
[2024-11-12] MEDS: AMOXIC-POT CLAV 875-125MG 1 EACH TAB PO STA (22:21)
[2024-11-12] MEDS: ACETAMINOPHEN TAB 500 MG TAB PO STA (22:21)
[2024-11-12] MEDS: LIDOCAINE 1% INJ 10MG/ML (20 ML MDV) SQ ONE (23:37)
--- NOTE | 2024-11-13 01:07 | XR ---
EXAM: XR Left Wrist Complete, 3 or More Views CLINICAL HISTORY: ITS.REASON XR Reason: Dog bite TECHNIQUE: Frontal, lateral and oblique views of the left wrist. COMPARISON: None FINDINGS: Bones/joints: Nondisplaced fracture of the left ulnar styloid process. Old appearing fracture deformity of the distal left scaphoid. No dislocation. No bony lesion. Soft tissues: Soft tissue swelling and gas, and bones, compatible with reported dog bite. No radiopaque foreign body identified. IMPRESSION: 1. Nondisplaced fracture of the left ulnar styloid process. 2. Soft tissue swelling and gas, and bones, compatible with reported dog bite.
[2024-11-13] MEDS: ceFAZolin 1,000 MG VIAL (IM USE) IM STA (02:52)
[2024-11-13] MEDS: KETOROLAC 15 MG/ML 1 ML VIAL IM STA (02:56)
[2024-11-13] MEDS: AMPICILLIN-SULBACTAM 3 GM in SODIUM CHLORIDE 0.9% 100 ML IVPB STA (02:58)
[2024-11-13] MEDS ORDERED: NALOXONE 0.4 MG/ML 1 ML VIAL IV PRN (03:07)
[2024-11-13] MEDS ORDERED: ACETAMINOPHEN TAB 325 MG TAB PO PRN (03:07)
[2024-11-13] MEDS: SODIUM CHLORIDE 0.9% 1,000 ML IV SCH (03:54)
[2024-11-13] MEDS: FAMOTIDINE 20 MG TAB PO SCH (08:30)
[2024-11-13] MEDS: KETOROLAC 15 MG/ML 1 ML VIAL IVP PRN (08:51)
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
[2024-11-13 11:15] LABS: Basophils # (A) 0.02 10*3/uL (0.00-0.10); Basophils % (A) 0.2 %; Eosinophils # (A) 0.15 10*3/uL (0.04-0.35); Eosinophils % (A) 1.7 %; HCT 38.4 % (39.6-50.0); HGB 13.7 g/dL (13.0-17.0); Lymphocytes # (A) 1.76 10*3/uL (0.90-5.00); Lymphocytes % (A) 20.4 %; MCH 32.9 pg (27.0-32.0); MCHC 35.7 g/dL (32.0-37.0); MCV 92.1 fL (80.0-97.0); Mean Platelet Volume 9.4 fL (9.5-12.2); Monocytes # (A) 0.83 10*3/uL (0.20-1.00); Monocytes % (A) 9.6 %; Neutrophils # (A) 5.84 10*3/uL (1.80-7.70); Neutrophils % (A) 67.8 %; Platelet Count 305 10*3/uL (140-440); RBC 4.17 10*6/uL (4.40-5.60); RDW 13.2 % (11.5-14.5); WBC 8.63 10*3/uL (4.50-10.00)
[2024-11-13 11:25] LABS: ALT 69 U/L (4-49); AST 45 U/L (17-59); African American GFR (CKD) >90 (>60 ml/min/1.73 sqM); Albumin 3.8 g/dL (3.5-5.0); Albumin/Globulin Ratio 1.5; Alkaline Phosphatase 65 U/L (38-126); Anion Gap 8 mmol/L; Blood Urea Nitrogen 15 mg/dL (9-20); Calcium 9.3 mg/dL (8.4-10.2); Carbon Dioxide 24 mmol/L (22-30); Chloride 109 mmol/L (98-107); Globulin 2.5 g/dL; Glucose 108 mg/dL (74-99); Non-African American GFR(CKD) >90 (>60 ml/min/1.73 sqM); Potassium 3.8 mmol/L (3.5-5.1); Sodium 141 mmol/L (137-145); Total Bilirubin 0.6 mg/dL (0.2-1.3); Total Protein 6.3 g/dL (6.3-8.2)
[2024-11-13] MEDS: AMPICILLIN-SULBACTAM 3 GM in SODIUM CHLORIDE 0.9% 100 ML IVPB SCH (11:43)
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
[2024-11-13] MEDS: HYDROmorphone 1 MG/ML 1 ML SYRINGE IVP PRN (13:39)
[2024-11-13] MEDS: HYDROcodone/APAP 5-325MG 1 EACH TAB PO PRN (22:15)
[2024-11-14 09:29] LABS: Basophils # (A) 0.03 X 10*3/uL (0.00-0.10); Basophils % (A) 0.5 %; HCT 39.3 % (39.6-50.0); HGB 13.1 g/dL (13.0-17.0); Lymphocytes # (A) 2.12 X 10*3/uL (0.90-5.00); Lymphocytes % (A) 32.3 %; MCH 31.5 pg (27.0-32.0); MCHC 33.3 g/dL (32.0-37.0); MCV 94.5 FL (80.0-97.0); Mean Platelet Volume 10.2 FL (9.5-12.2); Monocytes # (A) 0.67 X 10*3/uL (0.20-1.00); Monocytes % (A) 10.2 %; NRBC Per 100 WBC 0 X 10*3/uL (0.00-0.01); Neutrophils # (A) 3.52 X 10*3/uL (1.80-7.70); Neutrophils % (A) 53.7 %; Platelet Count 306 X 10*3/uL (140-440); RBC 4.16 X 10*6/uL (4.40-5.60); RDW 13.2 % (11.5-14.5); WBC 6.56 X 10*3/uL (4.50-10.00)
[2024-11-14 09:55] LABS: ALT 52 U/L (10-49); AST 29 U/L (14-35); Albumin 3.6 g/dL (3.8-4.9); Alkaline Phosphatase 70 U/L (41-126); BUN/Creat Ratio 15.25 Ratio (12.00-20.00); Blood Urea Nitrogen 12.2 mg/dL (9.0-27.0); Calcium 8.7 mg/dL (8.7-10.3); Chloride 109 mmol/L (96-109); Glucose 95 mg/dL (70-110); Potassium 4.2 mmol/L (3.5-5.5); Sodium 141 mmol/L (135-145); Total Bilirubin 0.3 mg/dL (0.3-1.2); Total Protein 5.6 g/dL (6.2-8.2)
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
--- NOTE | 2024-11-14 12:27 | P.PN ---
Subjective Progress Note Date: 11/14/24 Principal diagnosis: Left hand/wrist dog bite, left ulnar styloid fracture Patient evaluated at bedside, resting comfortably. Has had some increase in pain and pressure in that hand/wrist area. No fevers or chills at this time. Has been followed by both internal medicine and infectious disease. Objective - Vital Signs Vital signs: Vital Signs Temp 98.2 F 11/14/24 07:55 Pulse 83 11/14/24 07:55 Resp 18 11/14/24 07:55 BP 126/77 11/14/24 07:55 Pulse Ox 97 11/14/24 07:55 FiO2 Intake & Output 11/13/24 11/14/24 11/14/24 18:59 06:59 18:59 Weight 72.1 kg Other: # Voids 1 - Exam Left upper extremity: Splint and Adriel bandage was removed today at bedside. Lacerations are well- healing with good nylon fixation. There are some minor soft tissue swelling and ecchymosis. No increase in erythema. No significant drainage appreciated. Sensation to light touch is intact throughout the extremity. Patient is able to wiggle all the fingers with no difficulty. Radial and ulnar pulse are 2+ - Labs CBC & Chem 7: 11/14/24 02:45 11/14/24 02:45 Labs: Abnormal Lab Results - Last 24 Hours (Table) 11/14/24 11/14/24 Range/Units 02:45 02:45 RBC 4.16 L (4.40-5.60) X 10*6/uL Hct 39.3 L (39.6-50.0) % ALT 52 H (10-49) U/L Total Protein 5.6 L (6.2-8.2) g/dL Albumin 3.6 L (3.8-4.9) g/dL Assessment and Plan Assessment: Left wrist ulnar styloid fracture Left hand/wrist lacerations x 3 History of dog bite Plan: Continue conservative measures, splint was removed. Basic bandage was placed. Okay to not use splint at this time, patient will avoid excess use of the hand. Patient is able to wiggle the hand and wrist to help prevent swelling. Icing and elevating instructions were again discussed Patient remains on IV antibiotics Other medical specialty recommendations appreciated GI and DVT prophylaxis per primary medical service Will continue to follow during hospital stay Time with Patient: Less than 30
--- NOTE | 2024-11-14 13:14 | P.PN ---
Subjective Progress Note Date: 11/14/24 patient 34-year-old gentleman with no significant past medical history who presented to the ER because of dog bite to left upper extremity. Patient said he was trying to break a fight between 2 dogs when one of the dogs bit into his left wrist. Patient ended up having 3 laceration on his left wrist. Patient had severe pain at the time. There was no complaint of fever or chills. Patient denies any chest pain. Patient denies shortness of breath. There was no evidence of any other trauma. Because of this left wrist wound patient came to the ER X-ray left wrist done showed nondisplaced fracture of the left ulnar styloid process Patient admitted to internal medicine service 11/14. Patient seen and examined. Stated left hand pain has improved REVIEW OF SYSTEMS: CONSTITUTIONAL: No fever, no malaise,. CARDIOVASCULAR: No chest pain, no palpitations, no syncope. PULMONARY: No shortness of breath, no cough, GASTROINTESTINAL: No diarrhea, no nausea, no vomiting, no abdominal pain. NEUROLOGICAL: No headaches, no weakness, PHYSICAL EXAMINATION: GENERAL: The patient is alert and oriented x3, not in any acute distress. Well developed, well nourished. HEENT: Pupils are round and equally reacting to light. EOMI. No scleral icterus. No conjunctival pallor. Normocephalic, atraumatic. No pharyngeal erythema. No thyromegaly. CARDIOVASCULAR: S1 and S2 present. No murmurs, rubs, or gallops. PULMONARY: Chest is clear to auscultation, no wheezing or crackles. ABDOMEN: Soft, nontender, nondistended, normoactive bowel sounds. No palpable organomegaly. MUSCULOSKELETAL: Left wrist laceration seen EXTREMITIES: No cyanosis, clubbing, or pedal edema. NEUROLOGICAL: Gross neurological examination did not reveal any focal deficits. SKIN: No rashes. Assessment and plan Dog bite to left wrist Left hand laceration Nondisplaced fracture of the left ulnar styloid process Monitor vital signs Monitor CBC Monitor CMP Continue IV Unasyn Continue pain management with as needed Tylenol for mild pain and as needed Spicer for severe pain Orthopedic evaluated, not planning any surgical intervention, agree with continuation of IV antibiotics ID consulted, their recommendations reviewed from 11/13 Labs and medication were reviewed.. Continue same treatment. Continue with symptomatic treatment. Resume home medication. Monitor labs and vitals. DVT and GI prophylaxis. Further recommendations as per clinical course of the patient Dictation was produced using [employer] dictation software. please excuse any grammatical, word or spelling errors. Objective - Vital Signs Vital signs: Vital Signs Temp 98.2 F 11/14/24 07:55 Pulse 83 11/14/24 07:55 Resp 18 11/14/24 07:55 BP 126/77 11/14/24 07:55 Pulse Ox 97 11/14/24 07:55 FiO2 Intake & Output 11/13/24 11/14/24 11/14/24 18:59 06:59 18:59 Weight 72.1 kg Other: # Voids 1 - Labs CBC & Chem 7: 11/14/24 02:45 11/14/24 02:45 Labs: Abnormal Lab Results - Last 24 Hours (Table) 11/14/24 11/14/24 Range/Units 02:45 02:45 RBC 4.16 L (4.40-5.60) X 10*6/uL Hct 39.3 L (39.6-50.0) % ALT 52 H (10-49) U/L Total Protein 5.6 L (6.2-8.2) g/dL Albumin 3.6 L (3.8-4.9) g/dL
--- NOTE | 2024-11-14 17:00 | P.PN ---
Subjective Progress Note Date: 11/14/24 Principal diagnosis: Reason for follow-up with left forearm dog bite wound and cellulitis Patient is a 34-year-old male with a past medical history sniffing and for asthma ADHD presenting to the hospital for evaluation of bleeding that resulted from a dog bite to the left upper extremity noticed to have a ulna fracture. On today's evaluation that is 11/14/2024,the patient remains to be afebrile, patient is on room air not requiring supplemental oxygen and denies any shortness of breath no chest pain or cough.Patient denies having any nausea or vomiting, no abdominal pain and no diarrhea still complaining of pain to the left upper extremity but no worsening. Patient white count 6.56 and a creatinine of 0.8 Objective - Vital Signs Vital signs: Vital Signs Temp 98.0 F 11/14/24 13:25 Pulse 85 11/14/24 13:25 Resp 18 11/14/24 13:25 BP 121/71 11/14/24 13:25 Pulse Ox 97 11/14/24 13:25 FiO2 Intake & Output 11/13/24 11/14/24 11/14/24 18:59 06:59 18:59 Weight 72.1 kg Other: # Voids 1 - Exam GENERAL DESCRIPTION: Middle-age male lying in bed in no distress RESPIRATORY SYSTEM: Unlabored breathing , decreased breath sounds at bases HEART: S1 S2 regular rate and rhythm , ABDOMEN: Soft , no tenderness EXTREMITIES: Left upper extremity is currently dressed no drainage - Labs CBC & Chem 7: 11/14/24 02:45 11/14/24 02:45 Labs: Abnormal Lab Results - Last 24 Hours (Table) 11/14/24 11/14/24 Range/Units 02:45 02:45 RBC 4.16 L (4.40-5.60) X 10*6/uL Hct 39.3 L (39.6-50.0) % ALT 52 H (10-49) U/L Total Protein 5.6 L (6.2-8.2) g/dL Albumin 3.6 L (3.8-4.9) g/dL Assessment and Plan (1) Left arm cellulitis Current Visit: Yes Status: Acute Code(s): L03.114 - CELLULITIS OF LEFT UPPER LIMB SNOMED Code(s): 67815569700534104 (2) Dog bite Current Visit: Yes Status: Acute Code(s): W54.0XXA - BITTEN BY DOG, INITIAL ENCOUNTER SNOMED Code(s): 691086846 (3) Laceration of wrist, left Current Visit: Yes Status: Acute Code(s): S61.512A - LACERATION WITHOUT FOREIGN BODY OF LEFT WRIST, INIT ENCNTR SNOMED Code(s): 55559027423790893 (4) Open fracture of distal ulna Current Visit: Yes Status: Acute Code(s): S52.609B - UNSP FX LOWER END OF UNSP ULNA, INIT FOR OPN FX TYPE I/2 SNOMED Code(s): 882721 Plan: 1patient with extensive dog bite to the left upper extremity with evidence of laceration and ulnar fracture concerning for extensive injury and high risk of secondary infection related to the oral rupa of the dog including Pasteurella and related species 2patient to continue with Unasyn and monitor clinical course closely Dictation was produced using [employer] dictation software. please excuse any grammatical, word or spelling errors. Time with Patient: Less than 30
[2024-11-14 22:01] VITALS: RESP 16
[2024-11-15 07:47] VITALS: BP 125/82; PULSE 69; TEMP 98.1
--- NOTE | 2024-11-15 12:13 | P.PN ---
Subjective Progress Note Date: 11/15/24 Principal diagnosis: Left hand/wrist dog bite, left ulnar styloid fracture Patient evaluated at bedside, resting comfortably. No fevers or chills at this time. Has been followed by both internal medicine and infectious disease. Objective - Vital Signs Vital signs: Vital Signs Temp 98.1 F 11/15/24 07:29 Pulse 69 11/15/24 07:29 Resp 16 11/15/24 07:29 BP 125/82 11/15/24 07:29 Pulse Ox 97 11/15/24 07:29 FiO2 Intake & Output 11/14/24 11/15/24 11/15/24 18:59 06:59 18:59 Intake Total 180 Balance 180 Intake: Oral 180 Other: Voiding Method Toilet # Voids 3 1 - Exam Left upper extremity: Lacerations are well-healing with good nylon fixation. There are some minor soft tissue swelling and ecchymosis surrounding wrist. No increase in erythema. No significant drainage appreciated. Sensation to light touch is intact throughout the extremity. Patient is able to wiggle all the fingers with no difficulty. Radial and ulnar pulse are 2+ - Labs CBC & Chem 7: 11/14/24 02:45 11/14/24 02:45 Assessment and Plan Assessment: Left wrist ulnar styloid fracture Left hand/wrist lacerations x 3 History of dog bite Plan: Continue conservative measures, splint was removed. Basic bandage was placed. Okay to not use splint at this time, patient will avoid excess use of the hand. Patient is able to wiggle the hand and wrist to help prevent swelling. Icing and elevating instructions were again discussed Patient remains on IV antibiotics Other medical specialty recommendations appreciated GI and DVT prophylaxis per primary medical service Orthopedically stable for discharge and follow-up in the outpatient setting Time with Patient: Less than 30
--- NOTE | 2024-11-15 14:10 | P.DS ---
Providers Date of admission: 11/13/24 03:07 Expected date of discharge: 11/15/24 Attending physician: Tony Yanez Consults: 11/13/24 03:07 Consult Physician Urgent Consulting Provider: Haresh Garcia Consult Reason/Comments: open fracture Do you want consulting provider notified?: Yes, Notify in am 11/13/24 10:37 Consult Physician Routine Consulting Provider: Alivia Calhoun Consult Reason/Comments: Dogbite Do you want consulting provider notified?: Yes Primary care physician: Edson Mcqueen Hospital Course: Discharge diagnoses; Dog bite to left wrist Left hand laceration Nondisplaced fracture of the left ulnar styloid process Hospital course; patient 34-year-old gentleman with no significant past medical history who presented to the ER because of dog bite to left upper extremity. Patient said he was trying to break a fight between 2 dogs when one of the dogs bit into his left wrist. Patient ended up having 3 laceration on his left wrist. Patient h ad severe pain at the time. There was no complaint of fever or chills. Patient denies any chest pain. Patient denies shortness of breath. There was no evidence of any other trauma. Because of this left wrist wound patient came to the ER X-ray left wrist done showed nondisplaced fracture of the left ulnar styloid process Patient admitted to internal medicine service 11/14. Patient seen and examined. Stated left hand pain has improved 11/15. Patient seen examined. Left wrist pain has improved. ID recommended 1 week of Augmentin. Discharge medications were prescribed by orthopedics. PHYSICAL EXAMINATION: GENERAL: The patient is alert and oriented x3, not in any acute distress. Well developed, well nourished. HEENT: Pupils are round and equally reacting to light. EOMI. No scleral icterus. No conjunctival pallor. Normocephalic, atraumatic. No pharyngeal erythema. No thyromegaly. CARDIOVASCULAR: S1 and S2 present. No murmurs, rubs, or gallops. PULMONARY: Chest is clear to auscultation, no wheezing or crackles. ABDOMEN: Soft, nontender, nondistended, normoactive bowel sounds. No palpable organomegaly. MUSCULOSKELETAL: Left wrist bandage seen EXTREMITIES: No cyanosis, clubbing, or pedal edema. NEUROLOGICAL: Gross neurological examination did not reveal any focal deficits. SKIN: No rashes. Dictation was produced using [employer] dictation software. please excuse any grammatical, word or spelling errors. Patient Condition at Discharge: Fair Plan - Discharge Summary Discharge Rx Participant: Yes New Discharge Prescriptions: New Ibuprofen [Motrin] 600 mg PO Q8HR PRN #20 tab PRN Reason: Pain Amoxic-Pot Clav 875-125Mg [Augmentin 875-125] 1 tab PO BID 1 Days #14 tab No Action Dextroamphetamine/Amphetamine [Adderall] 20 mg PO TID HYDROcodone/APAP 7.5-325MG [[place] 7.5-325] 1 tab PO BID PRN PRN Reason: Severe Pain (Scale 7 To 10) Discharge Medication List Amoxic-Pot Clav 875-125Mg [Augmentin 875-125] 1 tab PO BID 1 Days #14 tab 11/12/24 [Rx] Ibuprofen [Motrin] 600 mg PO Q8HR PRN #20 tab 11/12/24 [Rx] Dextroamphetamine/Amphetamine [Adderall] 20 mg PO TID 11/13/24 [History] HYDROcodone/APAP 7.5-325MG [[place] 7.5-325] 1 tab PO BID PRN 11/13/24 [History] Follow up Appointment(s)/Referral(s): Sam Aguilar MD [STAFF PHYSICIAN] - 1-2 days Triston Aldrich PAC [PHYSICIAN CODE INSPECTOR] - 1 Week Edson Mcqueen MD [Primary Care Provider] - 1-2 days Patient Instructions/Handouts: Animal Bite (ED), Care For Your Stitches (ED), Wrist Fracture in Adults (ED) Activity/Diet/Wound Care/Special Instructions: Keep sutured area clean with antibacterial soap and water and dressing change at least twice daily. Follow-up with hand surgeon on Friday.
--- NOTE | 2024-11-15 16:30 | P.PN ---
Subjective Progress Note Date: 11/15/24 Principal diagnosis: Reason for follow-up with left forearm dog bite wound and cellulitis Patient is a 34-year-old male with a past medical history sniffing and for asthma ADHD presenting to the hospital for evaluation of bleeding that resulted from a dog bite to the left upper extremity noticed to have a ulna fracture. On today's evaluation that is 11/15/2024, the patient continues to be afebrile, the patient is on room air and breathing comfortably, the Pt denies having any chest pain or cough, the patient denies having any abdominal pain no vomiting or any diarrhea pain to the left upper arm has decreased in intensity. no new lab has been obtained today Objective - Vital Signs Vital signs: Vital Signs Temp 98.1 F 11/15/24 07:29 Pulse 69 11/15/24 07:29 Resp 16 11/15/24 07:29 BP 125/82 11/15/24 07:29 Pulse Ox 97 11/15/24 07:29 FiO2 Intake & Output 11/14/24 11/15/24 11/15/24 18:59 06:59 18:59 Intake Total 180 Balance 180 Intake: Oral 180 Other: Voiding Method Toilet # Voids 3 1 - Exam GENERAL DESCRIPTION: Middle-age male lying in bed in no distress RESPIRATORY SYSTEM: Unlabored breathing , decreased breath sounds at bases HEART: S1 S2 regular rate and rhythm , ABDOMEN: Soft , no tenderness EXTREMITIES: Left upper extremity did have a 2 laceration that has been stitched minimal redness no drainage - Labs CBC & Chem 7: 11/14/24 02:45 11/14/24 02:45 Assessment and Plan (1) Left arm cellulitis Status: Acute Code(s): L03.114 - CELLULITIS OF LEFT UPPER LIMB SNOMED Code(s): 34090234584782557 (2) Dog bite Status: Acute Code(s): W54.0XXA - BITTEN BY DOG, INITIAL ENCOUNTER SNOMED Code(s): 205082744 (3) Laceration of wrist, left Status: Acute Code(s): S61.512A - LACERATION WITHOUT FOREIGN BODY OF LEFT WRIST, INIT ENCNTR SNOMED Code(s): 16061077493971258 (4) Open fracture of distal ulna Status: Acute Code(s): S52.609B - UNSP FX LOWER END OF UNSP ULNA, INIT FOR OPN FX TYPE I/2 SNOMED Code(s): 344099 Plan: 1patient with extensive dog bite to the left upper extremity with evidence of laceration and ulnar fracture concerning for extensive injury and high risk of secondary infection related to the oral rupa of the dog including Pasteurella and related species 2patient seem to have cleared for discharge by orthopedics prescription for oral Augmentin has been sent patient vies if any worsening swelling or redness or drainage to let us know right away Dictation was produced using [employer] dictation software. please excuse any grammatical, word or spelling errors. Time with Patient: Less than 30
== END 2024-11-15 14:05 | disposition home or self-care (01) ==
LOC: EC 21:29 → 2SICU 23:22 → UNDOADMIN 23:22 → 4SSUR 11-13 03:07
PROVIDERS: ADMIT Internal Medicine; ATTEND Internal Medicine
DX: S52.615B Nondisplaced fracture of left ulna styloid process, initial encounter for open fracture type I or II (principal); W54.0XXA Bitten by dog, initial encounter; L03.114 Cellulitis of left upper limb; F31.9 Bipolar disorder, unspecified; F41.9 Anxiety disorder, unspecified; F17.200 Nicotine dependence, unspecified, uncomplicated; Z79.899 Other long term (current) drug therapy; Z91.040 Latex allergy status
CPT/HCPCS: 96376 ×4; 96366 ×3; 96365; 96372 ×2; 96375; 99284; 80053 ×2; 85025 ×2; 73110; 12032; 12001; G0378 ×3; J2003; J1171 ×3; J0295 ×3; J1885 ×3